=== PATIENT | female | born 1990 | race Caucasian/White ===

== ENCOUNTER 2021-12-26 10:29 | Outpatient (CLI) | payer OTHER | END 2021-12-26 10:30 | disposition home or self-care (01) | LOC: CSHLAB 10:29 | PROVIDERS: ATTEND Advanced Practice Midwife | DX: Z20.822 Contact with and (suspected) exposure to COVID-19 (principal) | CPT/HCPCS: 87811 ==

== ENCOUNTER 2021-12-29 02:35 | Inpatient (IN) | payer OTHER ==
[2021-12-29 03:26] VITALS: BMI 28.5
[2021-12-29] MEDS ORDERED: NS w/ Oxytocin 30 units 500 ML IVPB SCH (04:00)
[2021-12-29] MEDS ORDERED: Butorphanol Tartrate 1 MG/ML VIAL SLOW IVP PRN (04:00)
[2021-12-29] MEDS ORDERED: Lactated Ringer's 1,000 ML IV SCH (04:00)
[2021-12-29] MEDS ORDERED: hydrALAZINE 20 MG/ML VIAL SLOW IVP PRN (04:00)
[2021-12-29] MEDS ORDERED: Promethazine HCl 25 MG/ML VIAL IM PRN (04:00)
[2021-12-29] MEDS ORDERED: Lidocaine 1% (PF) 30 ML VIAL SC PRN (04:00)
[2021-12-29] MEDS ORDERED: Ondansetron PF 4 MG/2 ML Vial IVP PRN (04:00)
[2021-12-29] MEDS ORDERED: NS w/ Oxytocin 30 units 500 ML IV SCH (04:00)
[2021-12-29 04:02] LABS: Hemoglobin 11.2 g/dL (12.0-15.5); Mean Corpuscular Hemoglobin 28.2 pg (27.0-33.0); Mean Corpuscular Volume 82.9 fl (81.6-98.3); Mean Platelet Volume 9.8 fl (7.4-10.4); Platelet Count 313 10x3/uL (150-450); RBC Distribution Width 13.5 % (11.5-14.5); Red Blood Cell (RBC) Count 3.97 10x6/uL (3.90-5.03)
[2021-12-29 04:35] LABS: Hep B Surf Ag Non-Reactive S/CO (NonReactive); Syphilis Antibody Nonreactive (Nonreactive); Syphilis Antibody Index 0.03 S/CO (<1.00 Non-Reactive)
[2021-12-29 04:39] LABS: HBSAg Index 0.25 S/CO (0-0.99)
[2021-12-29] MEDS: Ibuprofen 800 MG TAB PO PRN (17:39)
[2021-12-30] MEDS: Ibuprofen 800 MG TAB PO PRN (01:19)
[2021-12-30] MEDS ORDERED: Ondansetron PF 4 MG/2 ML Vial IVP PRN (06:37)
[2021-12-30] MEDS ORDERED: NS w/ Oxytocin 30 units 500 ML IV SCH (06:37)
[2021-12-30] MEDS ORDERED: Bisacodyl 10 MG SUPP PR PRN (06:37)
[2021-12-30] MEDS ORDERED: hydrALAZINE 20 MG/ML VIAL SLOW IVP PRN (06:37)
[2021-12-30] MEDS ORDERED: Milk Of Magnesia 30 ML UDCUP PO PRN (06:37)
[2021-12-30] MEDS ORDERED: HYDROcodone/Acetaminophen 5/325 mg Tablet PO PRN ×2 (06:37)
[2021-12-30] MEDS ORDERED: Benzocaine-Menthol 82.5 ML CAN TOP PRN (06:37)
[2021-12-30] MEDS ORDERED: Boostrix 0.5 ML (Tdap) VIAL IM ONE (06:37)
[2021-12-30] MEDS ORDERED: Docusate 100 MG CAP PO SCH (06:45)
[2021-12-30] MEDS: Prenatal Vitamin 1 TAB PO SCH (09:34)
[2021-12-30] MEDS: Ibuprofen 800 MG TAB PO SCH ×2 (09:34→17:36)
[2021-12-30] MEDS: Ferrous Sulfate 325 MG TAB PO SCH (20:58)
[2021-12-31] MEDS: Ibuprofen 800 MG TAB PO SCH ×2 (05:11→09:15)
[2021-12-31 08:04] VITALS: BP 119/59; TEMP 98
[2021-12-31] MEDS: Prenatal Vitamin 1 TAB PO SCH (09:13)
[2021-12-31] MEDS: Docusate 100 MG CAP PO SCH (09:15)
[2021-12-31] MEDS: Ferrous Sulfate 325 MG TAB PO SCH ×2 (09:16)
== END 2021-12-31 12:05 | disposition home or self-care (01) | DRG 807 ==
LOC: CSHLD 02:35 → CSHPED 12-30 06:23
PROVIDERS: ADMIT Student in an Organized Health Care Education/Training Program; ATTEND Student in an Organized Health Care Education/Training Program
PROC: 10E0XZZ Delivery of Products of Conception, External Approach (ICD-10-PCS; principal; 2021-12-30)
DX: O80 Encounter for full-term uncomplicated delivery (principal); Z37.0 Single live birth; Z3A.39 39 weeks gestation of pregnancy; Z88.0 Allergy status to penicillin; Z88.8 Allergy status to other drugs, medicaments and biological substances
CPT/HCPCS: 36415; 85027; 86780; 86850; 86900; 86901; 87340; J0595; J2405; J2550; J2590